=== PATIENT | female | born 1960 | race Asian ===

== ENCOUNTER 2020-06-05 07:28 | Day surgery (SDC) | payer OTHER, SELFPAY ==
[~2020-06-05] VITALS: Ht 157.5 cm; Wt 59.0 kg
[2020-06-05] MEDS ORDERED: diphenhydrAMINE 50 MG/ML VIAL ONE (08:06)
[2020-06-05] MEDS ORDERED: MIDAZOLAM 5 MG/5 ML VIAL ONE (08:06)
[2020-06-05] MEDS ORDERED: LIDOCAINE 2% 100 MG/5 ML UJET TP ONE (08:06)
[2020-06-05] MEDS ORDERED: fentaNYL citrate 0.05 MG/ML VIAL ONE (08:06)
[2020-06-05] MEDS ORDERED: MIDAZOLAM 2 MG/2 ML VIAL IVP ONE (08:50)
[2020-06-05] MEDS ORDERED: fentaNYL citrate 0.05 MG/ML VIAL IVP ONE (08:50)
== END 2020-06-05 09:10 | disposition home or self-care (01) ==
LOC: MDS 07:28 → MMU 07:28 → MDS 09:10
PROVIDERS: ATTEND Internal Medicine Gastroenterology
DX: Z12.11 Encounter for screening for malignant neoplasm of colon (principal); K63.5 Polyp of colon; I10 Essential (primary) hypertension; E11.9 Type 2 diabetes mellitus without complications; Z79.899 Other long term (current) drug therapy; Z86.010 Personal history of colon polyps; Z79.84 Long term (current) use of oral hypoglycemic drugs; Z20.828 Contact with and (suspected) exposure to other viral communicable diseases
CPT/HCPCS: 45385; J2250; J3010; U0003; J1200

== ENCOUNTER 2022-01-28 09:03 | Day surgery (SDC) | payer OTHER ==
[~2022-01-28] VITALS: Ht 157.5 cm; Wt 59.0 kg
[2022-01-28] MEDS ORDERED: diphenhydrAMINE 50 MG/ML VIAL ONE (11:07)
[2022-01-28] MEDS ORDERED: fentaNYL citrate 0.05 MG/ML VIAL ONE (11:08)
[2022-01-28] MEDS ORDERED: LIDOCAINE 2% 100 MG/5 ML UJET TP ONE (11:08)
[2022-01-28] MEDS ORDERED: MIDAZOLAM 5 MG/5 ML VIAL ONE (11:08)
== END 2022-01-28 12:07 | disposition home or self-care (01) ==
LOC: MDS 09:03 → MMU 09:03 → MDS 12:07
PROVIDERS: ATTEND Internal Medicine Gastroenterology
DX: Z09 Encounter for follow-up examination after completed treatment for conditions other than malignant neoplasm (principal); Z86.010 Personal history of colon polyps; Z20.822 Contact with and (suspected) exposure to COVID-19
CPT/HCPCS: 45378; 87426; J2250; J3010; J7030; J1200